=== PATIENT | male | born 1990 | race Caucasian/White ===

== ENCOUNTER 2020-07-22 17:13 | Inpatient (IN) | payer SELFPAY ==
[2020-07-22 18:16] LABS: Bilirubin Negative (Negative); Blood, Urine 3+ (Negative); Clarity Turbid (Clear); Glucose, Urine (Dipstick) Normal (Negative); Ketone, Urine Trace mg/dL (Negative); Leukocyte 250 Leu/uL (Negative); Nitrite Negative (Negative); Protein, Urine (Dipstick) 200 mg/dL (Neg-Trace); RBC/HPF Greater than 50 HPF (0-3); Squamous Epithelial None Seen HPF (0-3); Urobilinogen Normal mg/dL (Less than 2); WBC/HPF Greater than 50 HPF (0-3)
[2020-07-22 18:30] LABS: Bacteria/HPF 2+ HPF (None Seen); Yeast-Budding 3+ HPF (None Seen)
[2020-07-22 18:45] LABS: #Monocytes 0.4 thou/uL (0.11-0.59); #Neutrophils 3.1 thou/uL (1.40-6.50); %Basophils 0.1 % (0.0-1.0); %Eosinophils 0.4 % (0.0-10.0); %Lymphocytes 21.5 % (21.0-51.0); %Monocytes 8.2 % (0.0-10.0); %Neutrophils 69.7 % (42.0-75.0); Hemoglobin 8.8 g/dL (14.0-18.0); Mean Corpuscular HGB CONC 33.9 g/dL (32.0-36.0); Mean Corpuscular Volume 82.8 fL (78.0-98.0); RBC Distribution Width 13.7 % (11.5-14.5); Red Blood Cell (RBC) Count 3.14 mill/uL (4.70-6.10); White Blood Cell (WBC) Count 4.5 thou/uL (4.8-10.8)
[2020-07-22 19:02] LABS: MDiff Complete? YES; Mean Platelet Volume 7.6 fL (7.4-10.4); Platelet Count 116 thou/uL (130-400); Platelet Morphology Comment Appears Decreased; Polychromasia SLIGHT = 2-3 cells (100X) (0-2/hpf)
[2020-07-22 19:06] LABS: ALT (SGPT) 157 U/L (8-55); AST (SGOT) 102 U/L (5-34); Albumin 3.1 g/dL (3.5-5.0); Alkaline Phosphatase 121 U/L (40-110); Anion Gap 13 mmol/L (10-20); BUN (Urea Nitrogen) 14 mg/dL (8.9-20.6); Bilirubin, Total 0.3 mg/dL (0.2-1.2); CK (CPK) 1476 U/L (30-200); Calc. Creatinine Clearance 0 mL/min (70-130); Calcium 8.3 mg/dL (7.8-10.44); Carbon Dioxide 23 mmol/L (22-29); Chloride 107 mmol/L (98-107); Globulin 3.7 g/dL (2.4-3.5); Glucose 105 mg/dL (70-105); Potassium 3.5 mmol/L (3.5-5.1); Protein, Total 6.8 g/dL (6.0-8.3); Sodium 139 mmol/L (136-145)
[2020-07-22] MEDS ORDERED: Morphine 4 MG/ML VIAL ONE ×2 (19:28→20:26)
[2020-07-22] MEDS ORDERED: cefTRIAXone\\ROCEPHIN 1 GM VIAL ONE (19:28)
[2020-07-22] MEDS ORDERED: Acetaminophen 325 MG TAB PO PRN (22:30)
[2020-07-22] MEDS: Sodium Chloride 0.9% 1,000 ML IV SCH (22:56)
[2020-07-22 23:17] VITALS: BMI 24.5
[2020-07-22] MEDS ORDERED: Morphine 4 MG/ML VIAL SLOW IVP SCH (23:45)
[2020-07-23 00:35] LABS: #Lymphocytes 0.7 thou/uL (1.20-3.40); #Monocytes 0.3 thou/uL (0.11-0.59); %Basophils 0.9 % (0.0-1.0); %Eosinophils 0.1 % (0.0-10.0); %Lymphocytes 24.2 % (21.0-51.0); %Monocytes 9.8 % (0.0-10.0); Hemoglobin 7.4 g/dL (14.0-18.0); Mean Corpuscular HGB CONC 33.8 g/dL (32.0-36.0); Mean Corpuscular Volume 82.7 fL (78.0-98.0); Mean Platelet Volume 8.2 fL (7.4-10.4); Platelet Count 87 thou/uL (130-400); RBC Distribution Width 13.7 % (11.5-14.5); Red Blood Cell (RBC) Count 2.64 mill/uL (4.70-6.10); White Blood Cell (WBC) Count 3.1 thou/uL (4.8-10.8)
[2020-07-23 00:41] LABS: Lactic Acid 0.8 mmol/L (0.5-2.2)
[2020-07-23 00:44] LABS: Phosphorus 2.1 mg/dL (2.3-4.7)
[2020-07-23 00:47] LABS: ALT (SGPT) 127 U/L (8-55); AST (SGOT) 77 U/L (5-34); Albumin 2.6 g/dL (3.5-5.0); Alkaline Phosphatase 112 U/L (40-110); Anion Gap 10 mmol/L (10-20); BUN (Urea Nitrogen) 13 mg/dL (8.9-20.6); Bilirubin, Total 0.3 mg/dL (0.2-1.2); CK (CPK) 890 U/L (30-200); Calc. Creatinine Clearance 139 mL/min (70-130); Calcium 7.6 mg/dL (7.8-10.44); Carbon Dioxide 23 mmol/L (22-29); Chloride 109 mmol/L (98-107); Globulin 3.5 g/dL (2.4-3.5); Glucose 109 mg/dL (70-105); Magnesium 1.9 mg/dL (1.6-2.6); Potassium 3.3 mmol/L (3.5-5.1); Protein, Total 6.1 g/dL (6.0-8.3); Sodium 139 mmol/L (136-145)
[2020-07-23] MEDS ORDERED: Azithromycin 500 MG in Sodium Chloride 0.9% 250 ML 250 ML IVPB SCH (01:00)
[2020-07-23] MEDS: Ketorolac Tromethamine 30 MG/ML VIAL IVP PRN ×2 (01:14→07:27)
[2020-07-23] MEDS ORDERED: Fentanyl 100 MCG/2 ML VIAL SLOW IVP SCH (02:00)
[2020-07-23] MEDS ORDERED: Potassium Chloride 20 MEQ TAB PO SCH (04:30)
[2020-07-23] MEDS: Morphine 4 MG/ML VIAL SLOW IVP PRN ×2 (04:32→08:23)
[2020-07-23 04:49] LABS: SARS-CoV-2 PCR by NAA Not Detected (NotDetected)
[2020-07-23 07:06] LABS: CK (CPK) 747 U/L (30-200); Iron 24 ug/dL (65-175); Iron Binding Capacity, Total 244 mcg/dL (261-462); Iron Binding Capacity, Total 246 mcg/dL (261-462)
[2020-07-23 07:07] LABS: Iron 24 ug/dL (65-175)
[2020-07-23] MEDS: Sodium Chloride 0.9% 1,000 ML IV SCH ×2 (07:33→10:30)
[2020-07-23] MEDS ORDERED: FLU VACC QS2020-21(6MOS UP)/PF 60 MCG/0.5 ML SYRINGE IM ONE (09:00)
[2020-07-23] MEDS ORDERED: HYDROcodone/Acetaminophen 5/325 mg Tablet PO SCH (09:15)
[2020-07-23] MEDS ORDERED: HYDROmorphone 0.5 MG/0.5 ML SYRINGE SLOW IVP SCH ×3 (11:30→17:30)
[2020-07-23] MEDS ORDERED: Naloxone HCl 0.4 mg/ml Vial IV PRN (13:15)
[2020-07-23] MEDS ORDERED: Ondansetron PF 4 MG/2 ML Vial IVP PRN (13:15)
[2020-07-23] MEDS ORDERED: diphenhydrAMINE 50 MG/ML VIAL IM/IV PRN (13:15)
[2020-07-23] MEDS ORDERED: diphenhydrAMINE 25 MG CAP PO PRN (13:15)
[2020-07-23] MEDS ORDERED: Zolpidem Tartrate 5 MG TAB PO PRN (13:15)
[2020-07-23] MEDS ORDERED: Promethazine HCl 25 MG/ML VIAL IM PRN (13:15)
[2020-07-23] MEDS: HYDROmorphone 10 mg/100 ml CADD IVPB PRN ×2 (13:58→23:56)
[2020-07-23 18:26] LABS: Amphetamine Not Detected (NotDetected); Barbiturates Screen Not Detected (NotDetected); Benzodiazepine Screen Detected (NotDetected); Cocaine Metabolite Screen Detected (NotDetected); Medtox Control Line Valid? VALID (VALID); Medtox Reader # READER 4; Methadone Not Detected (NotDetected); Methamphetamine Not Detected (NotDetected); Opiate Screen Detected (NotDetected); Oxycodone Screen Not Detected (NotDetected); Phencyclidine (PCP) Not Detected (NotDetected); THC/Cannabinoid Screen Detected (NotDetected); Tricyclic Screen Not Detected (NotDetected)
[2020-07-23] MEDS ORDERED: Acetaminophen 325 MG TAB PO PRN (20:07)
[2020-07-23] MEDS: Acetaminophen 325 MG TAB PO PRN (20:28)
[2020-07-23] MEDS: cefTRIAXone\\ROCEPHIN 1 GM in Sodium Chloride 0.9% 100 ML IVPB SCH (20:28)
[2020-07-24] MEDS: Acetaminophen 325 MG TAB PO PRN ×4 (01:35→22:22)
[2020-07-24 06:56] LABS: #Lymphocytes 1.3 thou/uL (1.20-3.40); #Monocytes 0.4 thou/uL (0.11-0.59); #Neutrophils 3.3 thou/uL (1.40-6.50); %Basophils 0.4 % (0.0-1.0); %Eosinophils 0.1 % (0.0-10.0); %Lymphocytes 25.2 % (21.0-51.0); %Monocytes 8.2 % (0.0-10.0); %Neutrophils 66.1 % (42.0-75.0); Hemoglobin 8.3 g/dL (14.0-18.0); Mean Corpuscular HGB CONC 33.4 g/dL (32.0-36.0); Mean Corpuscular Hemoglobin 27.7 pg (27.0-31.0); Mean Corpuscular Volume 82.9 fL (78.0-98.0); Mean Platelet Volume 7.5 fL (7.4-10.4); Platelet Count 143 thou/uL (130-400); RBC Distribution Width 13.9 % (11.5-14.5); Red Blood Cell (RBC) Count 3.01 mill/uL (4.70-6.10)
[2020-07-24 07:25] LABS: Anion Gap 13 mmol/L (10-20); BUN (Urea Nitrogen) 15 mg/dL (8.9-20.6); CK (CPK) 190 U/L (30-200); Calc. Creatinine Clearance 134 mL/min (70-130); Calcium 7.8 mg/dL (7.8-10.44); Carbon Dioxide 20 mmol/L (22-29); Chloride 110 mmol/L (98-107); Glucose 98 mg/dL (70-105); Potassium 3.4 mmol/L (3.5-5.1); Sodium 140 mmol/L (136-145)
[2020-07-24] MEDS: HYDROmorphone 10 mg/100 ml CADD IVPB PRN ×2 (10:38→20:41)
[2020-07-24] MEDS ORDERED: Azithromycin 500 MG in Sodium Chloride 0.9% 250 ML 250 ML IVPB SCH (16:00)
[2020-07-24] MEDS: Nicotine 21 MG PATCH TOP SCH (17:01)
[2020-07-24] MEDS: cefTRIAXone\\ROCEPHIN 1 GM in Sodium Chloride 0.9% 100 ML IVPB SCH (19:16)
[2020-07-25] MEDS: Benzonatate 100 MG CAP PO PRN ×2 (05:13→19:54)
[2020-07-25 06:09] LABS: #Eosinphils 0.1 thou/uL (0.0-0.7); #Lymphocytes 1.4 thou/uL (1.20-3.40); #Monocytes 0.4 thou/uL (0.11-0.59); #Neutrophils 3.1 thou/uL (1.40-6.50); %Basophils 0.4 % (0.0-1.0); %Lymphocytes 27.3 % (21.0-51.0); %Monocytes 8.7 % (0.0-10.0); %Neutrophils 62.6 % (42.0-75.0); Hemoglobin 8.2 g/dL (14.0-18.0); Mean Corpuscular Hemoglobin 27.2 pg (27.0-31.0); Mean Corpuscular Volume 82.7 fL (78.0-98.0); Mean Platelet Volume 7.1 fL (7.4-10.4); Platelet Count 182 thou/uL (130-400); RBC Distribution Width 13.7 % (11.5-14.5)
[2020-07-25 06:23] LABS: Anion Gap 10 mmol/L (10-20); BUN (Urea Nitrogen) 10 mg/dL (8.9-20.6); CK (CPK) 70 U/L (30-200); Calc. Creatinine Clearance 142 mL/min (70-130); Calcium 7.9 mg/dL (7.8-10.44); Carbon Dioxide 22 mmol/L (22-29); Chloride 110 mmol/L (98-107); Glucose 100 mg/dL (70-105); Potassium 3.4 mmol/L (3.5-5.1); Sodium 139 mmol/L (136-145)
[2020-07-25] MEDS: HYDROmorphone 10 mg/100 ml CADD IVPB PRN ×2 (08:03→19:55)
[2020-07-25] MEDS ORDERED: Potassium Chloride 20 MEQ TAB PO SCH (09:45)
[2020-07-25] MEDS ORDERED: Furosemide 40 MG/4 ML VIAL SLOW IVP SCH ×2 (09:45→17:00)
[2020-07-25] MEDS: Nicotine 21 MG PATCH TOP SCH (16:18)
[2020-07-26 01:37] LABS: Bacteria/HPF None Seen HPF (None Seen); RBC/HPF Greater than 50 HPF (0-3); Squamous Epithelial None Seen HPF (0-3); WBC/HPF 21-50 HPF (0-3)
[2020-07-26 07:05] LABS: #Eosinphils 0.1 thou/uL (0.0-0.7); #Lymphocytes 1.5 thou/uL (1.20-3.40); #Monocytes 0.3 thou/uL (0.11-0.59); #Neutrophils 2.6 thou/uL (1.40-6.50); %Eosinophils 1.6 % (0.0-10.0); %Lymphocytes 33.2 % (21.0-51.0); %Monocytes 7.6 % (0.0-10.0); %Neutrophils 57.6 % (42.0-75.0); Hemoglobin 8.1 g/dL (14.0-18.0); Mean Corpuscular HGB CONC 34.2 g/dL (32.0-36.0); Mean Corpuscular Hemoglobin 28.5 pg (27.0-31.0); Mean Corpuscular Volume 83.3 fL (78.0-98.0); Mean Platelet Volume 7.2 fL (7.4-10.4); Platelet Count 215 thou/uL (130-400); RBC Distribution Width 13.6 % (11.5-14.5); Red Blood Cell (RBC) Count 2.86 mill/uL (4.70-6.10); White Blood Cell (WBC) Count 4.4 thou/uL (4.8-10.8)
[2020-07-26 07:24] LABS: Anion Gap 11 mmol/L (10-20); BUN (Urea Nitrogen) 13 mg/dL (8.9-20.6); Calc. Creatinine Clearance 141 mL/min (70-130); Calcium 8.1 mg/dL (7.8-10.44); Carbon Dioxide 27 mmol/L (22-29); Chloride 104 mmol/L (98-107); Glucose 102 mg/dL (70-105); Potassium 3.4 mmol/L (3.5-5.1); Sodium 139 mmol/L (136-145)
[2020-07-26] MEDS: HYDROmorphone 10 mg/100 ml CADD IVPB PRN (09:45)
[2020-07-26] MEDS ORDERED: Furosemide 40 MG/4 ML VIAL SLOW IVP SCH (10:15)
[2020-07-26 10:21] LABS: Clarity Clear (Clear); Glucose, Urine (Dipstick) Negative (Negative); Ketone, Urine Negative (Negative); Leukocyte 75 Leu/uL (Negative); Nitrite Negative (Negative); Protein, Urine (Dipstick) 70 mg/dL (Neg-Trace); Specific Gravity, Urine 1.017 (1.002-1.036)
[2020-07-26 10:22] LABS: Bilirubin Negative (Negative); Blood, Urine 3+ (Negative); Urobilinogen Normal mg/dL (Less than 2)
[2020-07-26] MEDS ORDERED: Potassium Chloride 20 MEQ TAB PO SCH (14:15)
[2020-07-26 16:20] VITALS: BP 168/91; TEMP 98.5
== END 2020-07-26 16:44 | disposition home or self-care (01) | DRG 917 ==
LOC: ERS 17:13 → T4-B 21:05 → INTOOBSV 21:05 → T4-B 22:05 → OBSVTOIN 07-23 16:17
PROVIDERS: ADMIT Student in an Organized Health Care Education/Training Program; ATTEND Internal Medicine
DX: T40.7X1A Poisoning by cannabis (derivatives), accidental (unintentional), initial encounter (principal); J81.0 Acute pulmonary edema; M62.82 Rhabdomyolysis; D61.818 Other pancytopenia; N39.0 Urinary tract infection, site not specified; R31.9 Hematuria, unspecified; Z20.822 Contact with and (suspected) exposure to COVID-19; F17.210 Nicotine dependence, cigarettes, uncomplicated; R74.01 Elevation of levels of liver transaminase levels; E87.71 Transfusion associated circulatory overload; F12.10 Cannabis abuse, uncomplicated; F14.10 Cocaine abuse, uncomplicated; F13.10 Sedative, hypnotic or anxiolytic abuse, uncomplicated; F11.10 Opioid abuse, uncomplicated; Z88.1 Allergy status to other antibiotic agents; T40.5X1A Poisoning by cocaine, accidental (unintentional), initial encounter; T42.4X1A Poisoning by benzodiazepines, accidental (unintentional), initial encounter; T40.2X1A Poisoning by other opioids, accidental (unintentional), initial encounter
CPT/HCPCS: 36415; 71045; 80048; 80053; 80306; 81001; 81003; 81015; 82550; 82728; 83540; 83550; 83605; 83615; 83735; 83880; 84100; 84484; 85025; 87040; 87086; 87635; 93005; 96365; 96375; 96376; G0378; J0456; J0696; J1170; J1885; J1940; J2270; J3010; J3490; J7050; Q0163; U0003; U0005